=== PATIENT | male | born 1990 | race Caucasian/White ===

== ENCOUNTER 2017-08-23 12:24 | Emergency (ER) | payer OTHER, BC ==
[2017-08-23 12:28] VITALS: RESP 18
--- NOTE | 2017-08-23 12:52 | EDPHY ---
H & P Smoking Status: Current every day smoker Time Seen by Provider: 08/23/17 12:37 HPI/ROS: CHIEF COMPLAINT: Left 2nd digit laceration HISTORY OF PRESENT ILLNESS: 26-year-old [id number] male with up-to- date tetanus was using a box nailer he sustained accidental laceration to his left 2nd digit at the PIP joint palmar aspect. He notes decreased sensation distally and difficulty flexing at the D IP joint. PRIMARY CARE PROVIDER: REVIEW OF SYSTEMS: A ten point review of systems was performed and is negative with the exception of the items mentioned in the HPI PHYSICAL EXAM (Prior to examination, patient consented to physical exam, hands were washed and my usual and customary physical exam procedures followed) 1) GENERAL: Well-developed, well-nourished, alert and oriented. Appears to be in no acute distress. 2) HEAD: Normocephalic 3) HEENT: sclera anicteric 4) LUNGS: Breathing comfortably. 5) SKIN: 2 cm laceration at the PIP joint. 6) MUSCULOSKELETAL: FDS function intact. FDP dysfunction noted on exam. Lacerated tendon of the 2nd digit noted on exam. 7) NEUROLOGIC: Blunt cessation distally. (Rowena Crespo) Constitutional: Initial Vital Signs Temperature (C) 36.7 C 08/23/17 12:25 Heart Rate 92 08/23/17 12:25 Respiratory Rate 18 08/23/17 12:25 Blood Pressure 147/100 H 08/23/17 12:25 O2 Sat (%) 98 08/23/17 12:25 O2 Delivery Mode Room Air Allergies/Adverse Reactions: cefaclor [From Ceclor] Allergy (Mild, Verified 08/23/17 12:28) Rash sulfamethoxazole [From Bactrim] Allergy (Mild, Verified 08/23/17 12:29) Rash trimethoprim [From Bactrim] Allergy (Mild, Verified 08/23/17 12:29) Rash Home Medications: Medication Instructions Recorded Doxycycline Hyclate 100 mg PO BID #14 capsule 08/23/17 MDM/Departure - [facility] Imaging Results: Imaging Impressions Finger X-Ray 08/23/17 12:48 Impression: Soft tissue laceration, with no radiopaque foreign body or acute osseous abnormality. Images reviewed by myself (Rowena Crespo) Procedures: Procedure: Laceration repair. I explained the indications, risks and benefits for both laceration repair and anesthetic administration. Verbal consent was obtained from the patient . The laceration on the left 2nd digit was anesthetized using 0.5% bupivicaine without epinephrine digital nerve block. After anesthetic administered the patient was observed for a period of time and had no apparent adverse effects. The wound was cleaned, prepped, draped in normal sterile fashion and explored to its base. No foreign body seen, no foreign bodies palpated. Tendon laceration noted . skin edges closed with 6 simple interrupted 5 O Ethilon sutures.. The wound repair was complex. The procedure was performed by myself. Patient has been informed that scarring will occur, although efforts have been made to minimize this. Procedure: Splint A tube gauze splint was applied by ER diesel technician. After application of the splint I returned and re-examined the patient. The splint was adequately immobilizing the joint and distal to the splint the patient's circulation and sensation were intact. Patient shows no signs of compartment syndrome. Was given orthopedic precautions. (Rowena Crespo) ED Course/Re-evaluation: Care of patient under supervision of secondary supervising physician Dr Mckay. I consulted with the circulating nurse for Dr. Aamir Pimentel at 3:08 p.m.. He who concurs with the assessment and plan for skin closure, follow up for likely FDP laceration. Started on prophylactic antibiotics. Patient feels comfortable this plan. This is a work comp related injury and he has been informed that he will need to contact his work comp provider as well. (Rowena Crespo) I did not see this patient while he was in the emergency department. However his care was discussed with the PA while the patient was in the department. I agree with treatment plan and management. I am the secondary supervising position (Chandan Mckay) - Depart Disposition: Home, Routine, Self-Care Clinical Impression: Finger laceration Qualifiers: Encounter type: initial encounter Finger: index finger Damage to nail status: with damage Foreign body presence: without foreign body Laterality: left Qualified Code(s): S61.311A - Laceration without foreign body of left index finger with damage to nail, initial encounter Condition: Good Instructions: Laceration (ED) Additional Instructions: Return to the ER if you develop redness, swelling, discharge, warmth to the wound, red streaks going up your arm, or any other symptoms that concern you. Stand Alone Forms: Work Comp Follow Up Prescriptions: Doxycycline Hyclate 100 mg PO BID #14 capsule Referrals: Aamir Pimentel MD [Medical Doctor] - 1-2 days without fail
[2017-08-23 15:39] VITALS: BP 121/86; PULSE 69; TEMP 98.2; O2SAT 97
== END 2017-08-23 15:39 | disposition home or self-care (01) ==
PROC: 0HQGXZZ Repair Left Hand Skin, External Approach (ICD-10-PCS; principal; 2017-08-23)
DX: S61.311A Laceration without foreign body of left index finger with damage to nail, initial encounter (principal); F17.200 Nicotine dependence, unspecified, uncomplicated; W26.0XXA Contact with knife, initial encounter